=== PATIENT | female | born 1990 | race Caucasian/White ===

== ENCOUNTER 2020-10-21 22:31 | Emergency (ER) | payer MEDICAID, SELFPAY ==
[2020-10-21 22:37] VITALS: BP 135/9; BP 135/92; PULSE 80; PULSE 87; RESP 16; TEMP 36.8; O2SAT 100; BMI 24.4
--- NOTE | 2020-10-21 23:19 | ED_ITS ---
HPI - Abdominal Pain General Chief Complaint: Headache Stated Complaint: abd pain Time Seen by Provider: 10/21/20 23:03 Source: patient Mode of arrival: EMS History of Present Illness HPI narrative: This is a 30-year-old female with past medical history significant for abdominal migraines and cyclical vomiting for which she takes amitriptyline and controls with a combination of diet as well as OCP due to menstrual bleeding/cycle contributing to her symptoms previously. She denies any recent changes in medications or new medications but states that her diet has been poor over the past couple of days and today she began experiencing a bdominal pain with 2 episodes of nonbloody vomiting, but states she was able to hold down her amitriptyline just prior to EMS arrival. She states that she was provided some medication by EMS and that her pain level went from an 8/10 down to a 6/10. Otherwise, she denies any associated fevers, chills, diarrhea, and states that she is having some mild burning of the stomach but otherwise has no other complaints. Related Data Previous Rx's Medication Instructions Recorded omeprazole 40 mg PO DAILY 30 Days #30 cap 10/22/20 Allergies Allergy/AdvReac Type Severity Reaction Status Date / Time No Known Allergies Allergy Unverified 06/24/20 19:41 [No Known Allergies*] Review of Systems Review of Systems Pertinent positives and negatives as stated in HPI 10 point review systems is otherwise negative. Physical Exam Vital Signs: Vital Signs: Last Vital Signs Temp 98.3 F 10/21/20 22:37 Pulse 80 10/21/20 22:37 Resp 16 10/21/20 22:37 BP 135/9 L 10/21/20 22:37 Pulse Ox 100 10/21/20 22:37 Body Mass Index 24.4 VITAL SIGNS: Reviewed. GENERAL: Well developed, well nourished, in no acute distress. NOSE: Nares patent bilateral OROPHARYNX: no oral lesions noted, posterior pharynx clear and non-erythematous without noted tonsillar enlargement/erythema/exudates NECK: Supple, no adenopathy LUNGS: Normal breath sounds. No adventitious sounds or accessory muscle use. SpO2<100> CARDIOVASCULAR: Regular rate and rhythm without noted murmurs, no JVD or lower extremity edema. ABDOMEN: Soft, mild tenderness in the epigastrium without rebound, non-distended with bowel sounds. SKIN: Inspection of the skin reveals no rashes NEUROLOGIC: Alert and oriented x 4. Course Course Course Narrative: This is a 30-year-old female with history and clinical presentation consistent with suspected onset of cyclical vomiting which was likely controlled by the ability to tolerate the amitriptyline just prior to EMS arrival. Patient is not had any nausea/vomiting since arrival here in the emergency department and she will be provided with a GI cocktail followed by a p.o. trial. On re-evaluation patient has experienced significant improvement after the GI cocktail and was able to tolerate oral intake without any further nausea or vomiting episodes and states that her abdominal discomfort has completely resolved. Been recommended starting some antacid prescription level and patient was informed that she will have that prescription sent to her pharmacy. She was strongly encouraged to follow-up with her primary care provider. Discharge Plan Discharge Clinical Impression: Cyclical vomiting associated with migraine Qualifiers: Vomiting Intractability: non-intractable Qualified Code(s): G43.A0 - Cyclical vomiting, in migraine, not intractable Patient Disposition: Home, Self-Care Instructions: Cyclic Vomiting Syndrome (ED) Additional Instructions: 1. Resume all home medications as prescribed. 2. A prescription for omeprazole is being sent to your pharmacy. 3. Please follow up with the primary care provider for further evaluation and outpatient management. Prescriptions: New omeprazole 40 mg capsule,delayed release(DR/EC) 40 mg PO DAILY 30 Days Qty: 30 RF: 0 PMFSH Past Medical History Source: nursing notes reviewed Medical History Abdominal migraine Anxiety Cyclical vomiting Social History Social History Advance Directives: No Advance Directives Information Provided: Yes
[2020-10-21] MEDS: Magnesium Hydrox/Alum Hydrox 30 ML ORAL.SUSP PO (23:22)
[2020-10-21] MEDS: Lidocaine HCl Viscous 2 % 15 ML SOLUTION 10 ML MUCOUS MEM (23:22)
[2020-10-22] VITALS: BP 140/70; PULSE 84; RESP 16; TEMP 37; O2SAT 100
== END 2020-10-22 00:50 | disposition home or self-care (01) ==
PROVIDERS: Emergency Provider Student in an Organized Health Care Education/Training Program
DX: G43.A0 Cyclical vomiting, in migraine, not intractable (principal); Z79.899 Other long term (current) drug therapy
CPT/HCPCS: 99283; 99284